=== PATIENT | female | born 1995 | race Caucasian/White ===

== ENCOUNTER 2016-11-29 10:29 | Emergency (ER) | payer MEDICAID ==
[2016-11-29 11:26] LABS: APPEARANCE CLOUDY (CLEAR); BILIRUBIN NEGATIVE (NEGATIVE); COLOR YELLOW (YELLOW); GLUCOSE NEGATIVE (NEGATIVE); KETONE NEGATIVE (NEGATIVE); LEUKOCYTE ESTERASE 2+ (NEGATIVE); NITRITE NEGATIVE (NEGATIVE); PROTEIN 1+ mg/dL (NEGATIVE); UROBILINOGEN NORMAL (NORMAL)
[2016-11-29 11:27] LABS: EPITHELIAL CELLS 0-5 /hpf (0-5); WHITE CELLS - URINE 25-50 /hpf (0-5)
[2016-11-29 11:28] LABS: BACTERIA MODERATE /hpf (NONE SEEN); MUCUS <1+ /lpf (NONE SEEN)
== END 2016-11-29 13:47 | disposition home or self-care (01) ==
LOC: D.ER 10:29
PROVIDERS: Emergency Medicine
DX: A59.01 Trichomonal vulvovaginitis (principal); L02.91 Cutaneous abscess, unspecified

== ENCOUNTER 2017-01-23 14:55 | Emergency (ER) | payer MEDICAID | END 2017-01-23 16:45 | disposition home or self-care (01) | LOC: D.ER 14:55 | DX: L02.415 Cutaneous abscess of right lower limb (principal) ==

== ENCOUNTER 2017-05-09 12:57 | Emergency (ER) | payer MEDICAID | END 2017-05-09 14:15 | disposition home or self-care (01) | LOC: D.ER 12:57 | DX: J02.9 Acute pharyngitis, unspecified (principal); S20.461A Insect bite (nonvenomous) of right back wall of thorax, initial encounter ==

== ENCOUNTER 2017-07-03 20:15 | Emergency (ER) | payer MEDICAID ==
[2017-07-03 22:03] LABS: APPEARANCE CLEAR (CLEAR); BILIRUBIN NEGATIVE (NEGATIVE); COLOR YELLOW (YELLOW); GLUCOSE NEGATIVE (NEGATIVE); KETONE NEGATIVE (NEGATIVE); LEUKOCYTE ESTERASE NEGATIVE (NEGATIVE); NITRITE NEGATIVE (NEGATIVE); PROTEIN NEGATIVE (NEGATIVE); UROBILINOGEN NORMAL (NORMAL)
[2017-07-03 22:05] LABS: WHITE CELLS - URINE OCC /hpf (0-5)
[2017-07-03 22:07] LABS: BACTERIA FEW /hpf (NONE SEEN)
[2017-07-03 22:27] LABS: BASOPHILS 0.2 % (0-2); HEMATOCRIT 43.2 % (36.0-48.0); HEMOGLOBIN 14.4 g/dL (12-16); IMMATURE GRANULOCYTES 0.3 % (0-5); MCH 29.4 pg (26.0-34.0); MCHC 33.3 g/dL (31.0-37.0); MCV 88.3 fL (80.0-100.0); MEAN PLATELET VOLUME 10.1 fL (7.4-10.4); MONOCYTES 6.8 % (2-11); NEUTROPHILS 47.7 % (40-80); PLATELET COUNT 258 10x3/uL (130-400); RBC 4.89 10x6/uL (4.00-5.40); RDW 13.7 % (11.5-14.5); WBC 9.9 10x3/uL (4.8-10.8)
[2017-07-03 22:37] LABS: ALBUMIN 3.7 g/dL (3.4-5.0); ALKALINE PHOSPHATASE 73 U/L (46-116); ALT (SGPT) 22 U/L (10-68); CALC OSMOLALITY 282 mosm/kg (275-300); CALCIUM 9.3 mg/dL (8.5-10.1); CARBON DIOXIDE 25.1 mmol/L (21.0-32.0); CHLORIDE - SERUM 106 mmol/L (98-107); CREATININE - SERUM 0.7 mg/dL (0.6-1.3); GLUCOSE 85 mg/dL (74-106); LIPASE 121 U/L (73-393); POTASSIUM - SERUM 3.7 mmol/L (3.5-5.1); PROTEIN - SERUM 7.6 g/dL (6.4-8.2); SODIUM 142 mmol/L (136-145); UREA NITROGEN 15 mg/dL (7-18); eGFR NON AFRICAN AMERICAN > 90 mL/min (90-120)
== END 2017-07-03 22:36 | disposition home or self-care (01) ==
LOC: D.ER 20:15
PROVIDERS: Emergency Medicine
DX: K64.4 Residual hemorrhoidal skin tags (principal); N39.0 Urinary tract infection, site not specified; F17.200 Nicotine dependence, unspecified, uncomplicated

== ENCOUNTER 2018-07-30 18:17 | Emergency (ER) | payer MEDICAID ==
[~2018-07-30] VITALS: Ht 149.9 cm; Wt 77.3 kg
[2018-07-30 18:29] VITALS: Ht 149.9 cm; Wt 77.3 kg
[2018-07-30 20:07] LABS: HCG URINE NEGATIVE (NEGATIVE)
[2018-07-30 20:24] LABS: APPEARANCE CLEAR (CLEAR); BILIRUBIN NEGATIVE (NEGATIVE); COLOR YELLOW (YELLOW); GLUCOSE NEGATIVE (NEGATIVE); KETONE NEGATIVE (NEGATIVE); NITRITE NEGATIVE (NEGATIVE); PROTEIN NEGATIVE (NEGATIVE); SPECIFIC GRAVITY 1.015 (1.005-1.020); UROBILINOGEN NORMAL (NORMAL)
[2018-07-30 20:26] LABS: EPITHELIAL CELLS 0-5 /hpf (0-5); RED CELLS - URINE OCC /hpf (0-5); WHITE CELLS - URINE OCC /hpf (0-5)
[2018-07-30 20:27] LABS: BACTERIA FEW /hpf (NONE SEEN)
[2018-07-30 20:45] VITALS: BP 114/67
[2018-08-02 19:11] LABS: CHLAMYDIA TRACHOMATIS, NAA Negative (Negative)
== END 2018-07-30 20:45 | disposition home or self-care (01) ==
LOC: D.ER 18:17
PROVIDERS: Family Medicine
DX: Z20.2 Contact with and (suspected) exposure to infections with a predominantly sexual mode of transmission (principal); Z30.432 Encounter for removal of intrauterine contraceptive device; R10.2 Pelvic and perineal pain

== ENCOUNTER 2020-06-22 13:17 | Emergency (ER) | payer MEDICAID ==
[~2020-06-22] VITALS: Ht 149.9 cm; Wt 81.4 kg
[2020-06-22 13:20] VITALS: BP 123/88; Ht 149.9 cm; Wt 81.4 kg
[2020-06-22] MEDS ORDERED: AUGMENTIN 875-11 TAB PO (13:28)
== END 2020-06-22 15:30 | disposition home or self-care (01) ==
LOC: D.ER 13:17
DX: J02.9 Acute pharyngitis, unspecified (principal); Z72.0 Tobacco use